=== PATIENT | male | born 1965 | race Caucasian/White ===

== ENCOUNTER 2020-05-08 20:16 | Emergency (ER) | payer OTHER ==
[2020-05-08 20:51] LABS: BASOPHIL 0.2 % (0-2); EOSINOPHIL 0.1 % (0-5); HCT 39.6 % (42.0-52.0); HGB 13.1 g/dl (13.2-18.0); LYMPHOCYTE 23.4 % (15-48); MCH 30.6 pg (25.0-31.0); MCHC 33.1 g/dL (32.0-36.0); MCV 92.5 fL (78.0-100.0); MONOCYTE 9.4 % (0-12); MPV 9.6 fL (6.0-9.5); NEUTROPHIL 66.6 % (41-80); NRBC 0; PLT 330 K/uL (150-400); RBC 4.28 M/uL (4.70-6.00); RDW 14.8 % (11.5-14.0); WBC 14.3 K/uL (4.0-10.5)
[2020-05-08 21:02] LABS: ALBUMIN 3.2 g/dL (3.4-5.0); BILIRUBIN - TOTAL 0.3 mg/dL (0.2-1.0); BUN/CREAT RATIO (CALC) 26.5 RATIO; CREATININE 0.68 mg/dL (0.67-1.17); GLOBULIN (CALCULATION) 3.5 g/dL; POTASSIUM 3.4 mmol/L (3.5-5.1); TOTAL PROTEIN 6.7 g/dL (6.4-8.2)
[2020-05-08 21:12] LABS: FTI-FREE THYROXINE INDEX 2.9 (4.2-13.0); TOTAL T4 8.4 ug/dL (4.7-13.3)
[2020-05-09] MEDS ORDERED: DIAZEPAM 5MG TAB5 MG PO (03:40)
== END 2020-05-09 04:00 | disposition home or self-care (01) ==
LOC: FER 20:16
PROVIDERS: Student in an Organized Health Care Education/Training Program
DX: H81.10 Benign paroxysmal vertigo, unspecified ear (principal); J44.9 Chronic obstructive pulmonary disease, unspecified; F17.290 Nicotine dependence, other tobacco product, uncomplicated
CPT/HCPCS: 36415; 70450; 71045; 80053; 83880; 84443; 84484; 85025; 93005; Q9967